=== PATIENT | female | born 1960 | race Asian ===

== ENCOUNTER → 2017-10-01 | Outpatient (CLI) | payer BC ==
[~2017-10-01] MED LIST: ACET1CAP PO; EPP3/2 IM; OPTIRAY 320 IV PRN
--- NOTE | 2017-10-01 14:16 | DIAGNOSTIC IMAGING REPORT ---
Brain MRI WITHOUT CONTRAST HISTORY: Headaches. Vertigo. Numbness of left arm and left leg. R29.818 Hemisensory [id number] TECHNIQUE: Multiplanar multisequence MRI of the brain was performed without the use of contrast. COMPARISON STUDY: Head CT 03/09/2016. FINDINGS: There are no areas of restricted diffusion to suggest acute infarction. The midline structures are intact. A few small retention cysts within the left maxillary sinus. The mastoid air cells are clear. The ventricles and sulci are within normal limits for age. There is no mass, hematoma, midline shift. The major vascular flow-voids at the skull base are well maintained. There are 2 punctate foci of T2 hyperintensity seen within the subcortical white matter of the left frontal lobe. These are of doubtful clinical significance. Otherwise, the remaining brain parenchyma demonstrates a normal signal intensity. IMPRESSION: No acute intracranial abnormality. Electronically signed by: Kiko Avina M.D. 10/01/2017 2:14 PM Dictated Date/Time: 10/01/2017 2:07 PM
--- NOTE | 2017-10-01 14:38 | DIAGNOSTIC IMAGING REPORT ---
CT NECK ANGIO WITH CONTRAST CLINICAL HISTORY: Dizziness. Hemisensory deficit. COMPARISON STUDY: No previous studies for comparison. TECHNIQUE: CT angiography was performed from the aortic arch to the skull base. MIP imaging was performed. The patient was scanned in a dynamic helical fashion during intravenous administration of 120. cc of Optiray 320. A dose lowering technique was utilized adhering to the principles of ALARA. CT DOSE: 463.46 mGy.cm Technique: CT angiogram of the carotid and vertebral arteries was obtained using intravenous contrast and 3-D reconstruction. NASCET criteria was utilized. Findings: The right carotid revealed no evidence of aneurysm and no evidence of dissection. There is no evidence of hemodynamic significant stenosis. The left carotid revealed no evidence of hemodynamic significant stenosis. There is no evidence of aneurysm. There is no evidence of dissection. There is no evidence of hemodynamically significant vertebral stenosis. There is no evidence of vertebral dissection. There is asymmetric cavernous sinus enhancement right greater than left. The finding was reviewed with 2 fellow radiologists. As there are no additional signs to indicate cavernous sinus thrombosis or cavernous sinus fistula, this asymmetry is not felt to be of significance. IMPRESSION: No evidence of hemodynamically significant carotid or vertebral artery stenosis. No evidence of dissection. Electronically signed by: Leonardo Miller M.D. 10/01/2017 2:37 PM Dictated Date/Time: 10/01/2017 2:22 PM
== END | disposition home or self-care (01) ==
LOC: C.MRI 13:24
PROVIDERS: ATTEND Psychiatry & Neurology Neurology
DX: R42 Dizziness and giddiness (principal); R29.818 Other symptoms and signs involving the nervous system

== ENCOUNTER → 2017-10-12 | Outpatient (CLI) | payer BC ==
[~2017-10-12] MED LIST changes: -OPTIRAY 320 IV PRN
== END | disposition home or self-care (01) ==
LOC: C.LABSPEC 13:49
PROVIDERS: ATTEND Obstetrics & Gynecology
DX: N89.8 Other specified noninflammatory disorders of vagina (principal)